=== PATIENT | male | born 1955 | race Two or more races ===

== ENCOUNTER 2020-09-25 17:19 | Emergency (ER) | payer MEDICAID, OTHER ==
[~2020-09-25] VITALS: Ht 172.7 cm; Wt 63.5 kg
[2020-09-25 19:00] VITALS: BP 156/84
[2020-09-25] MEDS ORDERED: ACETAMINOPHEN 325 MG TAB PO ONE (20:30)
== END 2020-09-25 20:57 | disposition home or self-care (01) ==
LOC: EDBD 17:19 → ER 17:19
DX: S20.219A Contusion of unspecified front wall of thorax, initial encounter (principal); S80.812A Abrasion, left lower leg, initial encounter; S30.811A Abrasion of abdominal wall, initial encounter; E78.5 Hyperlipidemia, unspecified; V89.2XXA Person injured in unspecified motor-vehicle accident, traffic, initial encounter; Y93.I9 Activity, other involving external motion; Y92.488 Other paved roadways as the place of occurrence of the external cause; Y99.8 Other external cause status
CPT/HCPCS: 71046; 71250; 73590; 93005